=== PATIENT | male | born 1960 | race African-American/Black ===

== ENCOUNTER 2020-12-29 12:14 | Emergency (ER) | payer MEDICARE, MEDICAID, SELFPAY ==
--- NOTE | ~2020-12-29 | CT_ITS ---
EXAMINATION: CT cervical spine wo con DATE: 12/29/2020 14:54 INDICATION: Neck pain. TECHNIQUE: Computed tomography (CT) of the cervical spine was performed without intravenous contrast. Automated exposure control and iterative reconstruction technique were employed. The dose-length pro duct was 449.28 mGy-cm. COMPARISON: None FINDINGS: There is 2 mm retrolisthesis of C5 on C6. Vertebral body heights are normal. There is mildl y decreased disc height at C4-C5, moderately decreased disc height at C5-C6, and mildly decreased dis c height at C6-C7. The following disc levels are specifically discussed: C2-C3: There is moderate left uncovertebral joint osteoarthritis. There is mild bilateral facet joint osteoarthritis. There is mild left neural foraminal stenosis. There is no central canal stenosis. C3-C4: There is mild bilateral uncovertebral joint osteoarthritis. There is mild bilateral facet join t osteoarthritis. There is no neural foraminal stenosis. There is no central canal stenosis. C4-C5: There is mild bilateral uncovertebral joint osteoarthritis. There is mild right facet joint os teoarthritis. There is no neural foraminal stenosis. There is mild central canal stenosis. C5-C6: There is mild right and moderate left uncovertebral joint osteoarthritis. There is mild bilate ral facet joint osteoarthritis. There is mild left neural foraminal stenosis. There is mild central c anal stenosis. C6-C7: There is no uncovertebral joint osteoarthritis. There is no facet joint osteoarthritis. There is no neural foraminal stenosis. There is mild central canal stenosis. C7-T1: There is no uncovertebral joint osteoarthritis. There is mild left facet joint osteoarthritis. There is no neural foraminal stenosis. There is no central canal stenosis. IMPRESSION: 1. Moderate cervical spondylosis. Reviewed, dictated and finalized at location A.
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
[2020-12-29 12:47] VITALS: BP 137/92; PULSE 65; RESP 14; TEMP 36.3; O2SAT 98
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
--- NOTE | 2020-12-29 15:12 | PC.NURSE ---
Pt refusing to take his pain medications until the c-collar removed
[2020-12-29] MEDS: CYCLOBENZAPRINE HCL 10 MG TABLET PO (15:40)
[2020-12-29] MEDS: IBUPROFEN 400 MG TABLET 800 MG PO (15:40)
[2020-12-29 16:05] VITALS: BP 151/91; PULSE 51; RESP 18; TEMP 36.6; O2SAT 100
== END 2020-12-29 16:05 | disposition home or self-care (01) ==
PROVIDERS: Emergency Provider General Practice; PCP Family Medicine
DX: S16.1XXA Strain of muscle, fascia and tendon at neck level, initial encounter (principal); I10 Essential (primary) hypertension; M47.812 Spondylosis without myelopathy or radiculopathy, cervical region; M48.14 Ankylosing hyperostosis [Forestier], thoracic region; V43.52XA Car driver injured in collision with other type car in traffic accident, initial encounter
CPT/HCPCS: 72072; 72125; 99284; A9270; L0140